=== PATIENT | female | born 1960 | race Caucasian/White ===

== ENCOUNTER 2016-08-09 08:24 | Day surgery (SDC) | payer OTHER ==
--- NOTE | 2016-08-03 12:02 | HISTORY AND PHYSICAL E ---
History and Physical NAME: SYEDA KRAUS : 1960 AGE: 56Y ADMITTED: 08/09/2016 ROOM: REFERRED BY: [facility] HISTORY: The patient presented for colon exam. Patient admitted for colonoscopy. Patient was seen 07/31/2013; colonoscopy showing serrated polyp in the ascending colon. Saw the patient 10/13/2014. Again, she did have sessile polyp resected in [place]. On patient's colonoscopy in October 2014, she does have severe diverticulosis. Now, she is here for followup regarding history of sessile polyp in the right colon. SOCIAL HISTORY: . She does not smoke. Drinks rarely. ALLERGIES: No known allergies. MEDICATIONS: 1. Metformin. 2. Vitamin D. 3. Patient takes hydroxyzine. PAST SURGICAL HISTORY: 1. Breast augmentation. 2. Tummy tuck. 3. Right foot bunion. REVIEW OF SYSTEMS: CARDIAC: Negative. RESPIRATORY: Negative. ENDOCRINE: Hypothyroid. GASTROINTESTINAL: History of serrated adenomatous polyp, right colon. FAMILY HISTORY: Father had coronary heart disease. Mom had kidney cancer. PHYSICAL EXAMINATION: GENERAL: Pleasant, alert, oriented. VITAL SIGNS: Blood pressure 115/70, pulse 80, respirations 18, temperature is 98. HEAD, EYES, EARS, NOSE, THROAT: Normal. ABDOMEN: Soft. NEUROLOGIC: Exam negative. CONCLUSION: 1. COLON EXAM. 2. HISTORY OF SESSILE POLYP, RIGHT COLON. 3. DIVERTICULOSIS. PLAN: Colonoscopy. Admit 08/09/2016 for colon exam in the OR. DICTATING PHYSICIAN: ANSON GARCES M.D. [id number] PHY#: [id number] ID: [id number] JOB#: [id number] ACCT: [id number] cc:[facility] ANSON GARCES M.D. >
[~2016-08-09 08:24] MED LIST: LACTATED RINGERS 1000 ML IV PRN; LIDOCAINE 0.5% INJ-PF (5 MG/ML) 50 ML SDV SUBCUT PRN
[2016-08-09] MEDS ORDERED: PROPOFOL INJ 200 MG/20 ML VIAL IV ONE (08:27)
[2016-08-09] MEDS ORDERED: FENTANYL CITRATE INJ/PF 100 MCG/2 ML AMPUL IV PRN ×3 (10:37)
[2016-08-09] MEDS ORDERED: OXYCODONE-ACETAMINOPHEN 5-325 MG TABLET PO PRN ×2 (10:37)
[2016-08-09] MEDS ORDERED: DIPHENHYDRAMINE HCL 50 MG/ML VIAL IV PRN (10:37)
[2016-08-09] MEDS ORDERED: GLUCAGON,HUMAN RECOMB 1 MG INJ ONE (11:51)
[2016-08-09 12:10] LABS: HEMATOCRIT 38.4 % (36.0-47.0); HGB HCT DIFFERENCE 0.6; MEAN CORPUSCULAR HEMOGLOBIN 32.7 pg (27.0-33.4); MEAN CORPUSCULAR HGB CONC 33.8 g/dL (32.0-36.0); MEAN CORPUSCULAR VOLUME 97 fl (80-97); RED BLOOD COUNT 3.97 10^6/uL (3.72-5.28); WHITE BLOOD COUNT 8.6 10^3/uL (4.0-10.5)
[2016-08-09 12:31] LABS: ANION GAP 7 (5-19); BLOOD UREA NITROGEN 8 mg/dL (7-20); CALCIUM 9.7 mg/dL (8.4-10.2); CARBON DIOXIDE 25 mmol/L (22-30); CHLORIDE 107 mmol/L (98-107); CREATININE RESULT 0.52 mg/dL (0.52-1.25); GLUCOSE 119 mg/dL (75-110); SODIUM 139.4 mmol/L (137-145)
[2016-08-09 12:52] VITALS: BP 131/82
[2016-08-09 13:02] LABS: CARCINOEMBRYONIC ANTIGEN 0.8 ng/mL (<3.0)
[2016-08-09] MEDS ORDERED: LIDOCAINE 2% JELLY 30 ML TUBE ONE (14:55)
--- NOTE | 2016-08-09 14:59 | DISCHARGE SUMMARY E ---
Discharge Summary NAME: SYEDA KRAUS : 1960 AGE: 56Y ADMITTED: 08/09/2016 DISCHARGED: 08/09/2016 PROCEDURE: Colonoscopy, biopsy. HOSPITAL COURSE: The patient is 56, presented for colon exam. She did have history of sessile polyps right colon, which was resected in [place]. Today's colonoscopy followup shows new small polyps 2-3 mm in size, biopsy obtained. DISCHARGE PLAN: Soft, low-residue diet for 3 days. Full liquid diet today. Soft, low-residue diet for 3 days. Awaiting biopsy results. Baseline CBC and CEA. Patient to hold her nonsteroidal for 5 days. Consideration followup colonoscopy 1 year. FINAL DIAGNOSES: 1. Right colon polyp. 2. Sigmoid descending colon diverticulosis. DICTATING PHYSICIAN: ANSON GARCES M.D. [id number] PHY#: [id number] ID: [id number] JOB#: [id number] ACCT: [id number] cc:[facility] ANSON GARCES M.D. >
--- NOTE | 2016-08-09 15:12 | OPERATIVE REPORT E ---
Operative Report NAME: SYEDA KRAUS : 1960 AGE: 56Y DATE OF SURGERY: 08/09/2016 ROOM: PREOPERATIVE DIAGNOSES: 1. COLON SCREENING. 2. HISTORY OF RIGHT COLON POLYPS. POSTOPERATIVE DIAGNOSES: 1. MODERATE TO SEVERE DIVERTICULOSIS SIGMOID DESCENDING COLON. 2. THREE SMALL SESSILE POLYPS IN THE RIGHT COLON, 2 TO 3 MM IN SIZE EACH. OPERATION: Colonoscopy. SURGEON: ANSON GARCES M.D. ANESTHESIA: Done in the OR with anesthesia standby. TISSUE REMOVED OR ALTERED: Biopsies polyps right colon x3. PROCEDURE: Rectal exam; normal. Sigmoid descending colon; diverticulosis severe. Transverse colon; normal. Ascending colon; shows 3 sessile polyps 2 to 3 mm in size each, biopsy obtained. Cecum; normal. Scope withdrawn cecum, ascending, transverse, descending, sigmoid all the way to the rectum. I saw the Karli ink that I did about 3 years ago. There was no polyp there. Cecum normal. Again, there were 2 to 3 polyps in the ascending colon around the hepatic curve. Transverse colon normal. Sigmoid descending colon diverticulosis. DISCHARGE PLAN: Awaiting biopsy results. Baseline CEA and CBC. Consider followup colonoscopy 1 year to be done in the OR. The patient has difficult redundant colon and we need support through the abdominal wall to reach the cecum. CONCLUSIONS: Right colon polyps, awaiting biopsy. Consideration followup colonoscopy next year, a year followup. The patient does have breast augmentation and abdominal tuck. DICTATING PHYSICIAN: ANSON GARCES M.D. [id number] PHY#: [id number] ID: [id number] JOB#: [id number] ACCT: [id number] cc:ANSON GARCES M.D. [facility] >
== END 2016-08-09 13:00 | disposition home or self-care (01) ==
LOC: OROUT 08:24
PROVIDERS: ATTEND Specialist
PROC: 0DBF8ZX Excision of Right Large Intestine, Via Natural or Artificial Opening Endoscopic, Diagnostic (ICD-10-PCS; principal; 2016-08-09 10:30)
DX: Z12.11 Encounter for screening for malignant neoplasm of colon (principal); K57.30 Diverticulosis of large intestine without perforation or abscess without bleeding; K63.5 Polyp of colon; E03.9 Hypothyroidism, unspecified; Z79.84 Long term (current) use of oral hypoglycemic drugs; Z79.899 Other long term (current) drug therapy
CPT/HCPCS: 45380; 36415; 82962; 82378; 85027; 81025; 80048; 88305 ×2; J1610; J2704; 810